=== PATIENT | female | born 1975 | race Caucasian/White ===

== ENCOUNTER → 2020-11-30 | Outpatient (CLI) | payer MEDICARE ==
[~2020-11-30] VITALS: Ht 160 cm; Wt 108.9 kg
[~2020-11-30] MED LIST: BENADRYL 50MG C50 MG PO; CAMILA0.35 MG PO; COPAXONE40 MG/1 ML SQ; CYCLOBENZAPRINE10 MG PO; EFFEXOR XR150 MG PO; EFFEXOR XR37.5 MG PO; GLUCOPHAGE1000 MG PO; IBUPROFEN600 MG PO; JANUVIA50 MG PO; LEVOCETIRIZINE D5 MG PO; LIORESAL TAB 1010 MG PO; LODINE CAP 300300 MG PO; NORCO 7.5-3251 EACH PO; NORFLEX 100 MG100 MG PO; PEPCID20 MG PO; PREDNISONE20 MG PO; PRINIVIL10 MG PO; REQUIP0.5 MG PO; TEMOVATE60 GM TP; Voltaren Gel 1 % TOP; ZANTAC150 MG PO
== END ==
LOC: OPSV 10:15
DX: G35 Multiple sclerosis (principal)
CPT/HCPCS: 96365; J2930; J7070

== ENCOUNTER → 2020-12-01 | Outpatient (CLI) | payer MEDICARE ==
[~2020-12-01] VITALS: Ht 160 cm; Wt 108.9 kg
== END ==
LOC: OPSV 09:58
DX: G35 Multiple sclerosis (principal)
CPT/HCPCS: 96365; J2930; J7070

== ENCOUNTER → 2020-12-02 | Outpatient (CLI) | payer MEDICARE | LOC: OPSV 09:51 | DX: G35 Multiple sclerosis (principal) | CPT/HCPCS: 96365; J2930; J7070 ==

== ENCOUNTER 2020-12-31 20:09 | Emergency (ER) | payer OTHER ==
[~2020-12-31 20:09] MED LIST changes: -CYCLOBENZAPRINE10 MG PO; -LODINE CAP 300300 MG PO
[2021-01-01] MEDS ORDERED: NORFLEX 100 MG100 MG PO (02:34)
[2021-01-01] MEDS ORDERED: LODINE CAP 300300 MG PO (02:34)
== END 2021-01-01 03:07 | disposition home or self-care (01) ==
LOC: ER1 20:09
DX: S80.02XA Contusion of left knee, initial encounter (principal); S80.01XA Contusion of right knee, initial encounter; S20.219A Contusion of unspecified front wall of thorax, initial encounter; E11.9 Type 2 diabetes mellitus without complications; G35 Multiple sclerosis; Z79.84 Long term (current) use of oral hypoglycemic drugs; Z79.899 Other long term (current) drug therapy; V49.40XA Driver injured in collision with unspecified motor vehicles in traffic accident, initial encounter; Y92.410 Unspecified street and highway as the place of occurrence of the external cause
CPT/HCPCS: 70450; 71046; 72125; 72131; 73564; 99284

== ENCOUNTER 2021-01-05 12:02 | Emergency (ER) | payer OTHER, MEDICARE ==
[~2021-01-05 12:02] MED LIST changes: +LODINE CAP 300300 MG PO
[2021-01-05] MEDS ORDERED: CYCLOBENZAPRINE10 MG PO (13:43)
== END 2021-01-05 14:55 | disposition home or self-care (01) ==
LOC: ER1 12:02
DX: S13.4XXA Sprain of ligaments of cervical spine, initial encounter (principal); S23.3XXA Sprain of ligaments of thoracic spine, initial encounter; S20.219A Contusion of unspecified front wall of thorax, initial encounter; R51.9 Headache, unspecified; E11.9 Type 2 diabetes mellitus without complications; V49.50XA Passenger injured in collision with unspecified motor vehicles in traffic accident, initial encounter; Y92.410 Unspecified street and highway as the place of occurrence of the external cause
CPT/HCPCS: 99283

== ENCOUNTER → 2021-07-27 | Outpatient (CLI) | payer MEDICARE ==
[~2021-07-27] MED LIST changes: +CYCLOBENZAPRINE10 MG PO
[2021-07-27 10:11] LABS: HEMOGLOBIN 13.3 gm/dl (12.3-15.3); RED BLOOD COUNT 4.48 M/UL (4.00-5.10); WHITE BLOOD COUNT 7.4 K/UL (4.5-11.0)
[2021-07-27 10:36] LABS: BUN/CREATININE RATIO 28 (0-10)
[2021-07-28 11:14] LABS: CREATININE, URINE 111.3 mg/dL (Not Estab.)
== END ==
LOC: LAB 09:12
PROVIDERS: Physician Assistant
DX: M25.512 Pain in left shoulder (principal); E11.9 Type 2 diabetes mellitus without complications; E55.9 Vitamin D deficiency, unspecified; M19.012 Primary osteoarthritis, left shoulder
CPT/HCPCS: 36415; 73030; 80053; 80061; 82043; 82570; 83036; 85025

== ENCOUNTER 2022-03-09 12:36 | Emergency (ER) | payer MEDICARE ==
[2022-03-09 15:16] LABS: HEMOGLOBIN 13.6 gm/dl (12.3-15.3); RED BLOOD COUNT 4.49 M/UL (4.00-5.10); WHITE BLOOD COUNT 7.8 K/UL (4.5-11.0)
[2022-03-09 15:36] LABS: BUN/CREATININE RATIO 20 (0-10)
[2022-03-09] MEDS ORDERED: OMNICEF 300 MG300 MG PO (16:36)
== END 2022-03-09 16:48 | disposition home or self-care (01) ==
LOC: ER1 12:36
PROVIDERS: Physician Assistant Medical
DX: R16.1 Splenomegaly, not elsewhere classified (principal); N39.0 Urinary tract infection, site not specified; E11.9 Type 2 diabetes mellitus without complications; G35 Multiple sclerosis; Z79.84 Long term (current) use of oral hypoglycemic drugs; Z79.899 Other long term (current) drug therapy
CPT/HCPCS: 80053; 81001; 83605; 85025; 87086; 96374; 99284; J1885; Q9967

== ENCOUNTER → 2022-06-22 | Outpatient (CLI) | payer MEDICARE ==
[~2022-06-22] MED LIST changes: +OMNICEF 300 MG300 MG PO
== END ==
LOC: KOH-I 12:53
DX: R16.1 Splenomegaly, not elsewhere classified (principal); K76.0 Fatty (change of) liver, not elsewhere classified
CPT/HCPCS: 74176